=== PATIENT | male | born 1945 | race Caucasian/White ===

== ENCOUNTER → 2020-05-17 | Outpatient (CLI) | payer MEDICARE | LOC: KOH-I 13:15 | DX: M25.512 Pain in left shoulder (principal); M19.012 Primary osteoarthritis, left shoulder | CPT/HCPCS: 73030 ==

== ENCOUNTER 2020-11-09 17:28 | Emergency (ER) | payer MEDICARE | END 2020-11-09 21:35 | disposition home or self-care (01) | LOC: ER1 17:28 | DX: Z23 Encounter for immunization (principal); U07.1 COVID-19; I10 Essential (primary) hypertension; E11.9 Type 2 diabetes mellitus without complications; F17.210 Nicotine dependence, cigarettes, uncomplicated | CPT/HCPCS: 36600; 71045; 82803; 99285; M0243 ==